=== PATIENT | male | born 1970 | race Caucasian/White ===

== ENCOUNTER → 2019-02-22 | Outpatient (CLI) | payer BC, SELFPAY ==
[2016-10-04 10:32] VITALS: BMI 29.0
--- NOTE | 2019-02-22 11:40 | RAD_ITS ---
STUDY: X-RAY - LUMBAR SPINE REASON FOR EXAM: Male, 48 years old. Right lumbar radiculopathy. History of disc surgery 1995. TECHNIQUE: 5 view(s) of the lumbar spine were obtained. COMPARISON: None FINDINGS: Normal lumbar lordosis. There is no substantial scoliosis. There is an anterolisthesis of L3 on L4 and a mild retrolisthesis of L5 on S1. There is mild multilevel endplate spondylosis of the lumbar vertebrae most prominent on the right at L4-5 and on the left at L3-4. There is degenerative disc disease with L3-4 and L5-S1 disc space narrowing. There is no demonstrated fracture. Degenerative arthroses are noted in the mid to lower lumbar facet joints, with narrowing prominent at L2-3 and L3-4 on the right as well as L3-4 and L4-5 on the left. The soft tissue structures are unremarkable. RAD/L/S Spine Min 4 Views IMPRESSION: Degenerative changes of the spine, as detailed above. Electronically Signed: Ricardo Rankin MD at 16:59 EDT , Service support ,
== END | disposition home or self-care (01) ==
LOC: MTRAD 11:38
PROVIDERS: Family Provider Family Medicine; PCP Family Medicine; Referring Provider Family Medicine; Visit Provider Family Medicine
DX: M54.16 Radiculopathy, lumbar region (principal)
CPT/HCPCS: 72110

== ENCOUNTER → 2019-03-24 | Outpatient (CLI) | payer BC, SELFPAY ==
--- NOTE | 2019-03-24 16:05 | MRI_ITS ---
STUDY: MRI LUMBAR SPINE WITH AND WITHOUT CONTRAST REASON FOR EXAM: Male, 48 years old. Low back pain, right hip and leg pain. TECHNIQUE: Standardized fat and water weighted pulse sequences were obtained in the sagittal and axial planes. IV Dotarem 20 was administered for the contrast portion of the examination. COMPARISON: None FINDINGS: T11-T12: (Sagittal only). Normal endplates. Normal disc height, hydration and morphology. Normal ventral extradural defect. Normal central canal and bilateral intervertebral neural foramina. T12-L1: (Sagittal only). Normal endplates. Normal disc height, hydration and morphology. No ventral extradural defect. Normal central canal and bilateral intervertebral neural foramina. Normal lumbar lordosis. There is no substantial scoliosis. Normal conus medullaris that terminates at the lower L1 vertebral body level. L1-2: Normal endplates. Normal disc height, hydration and morphology. Normal bilateral facet joints. Normal central canal and bilateral lateral recesses. Normal bilateral intervertebral neural foramina. L2-3: Normal endplates. Normal disc height, hydration and morphology. Normal bilateral facet joints. Normal central canal and bilateral lateral recesses. Normal bilateral intervertebral neural foramina. L3-4: Normal endplates. Mild disc space height narrowing. Mild degenerative anterolisthesis of L3 on L4. Pronounced central canal stenosis with an AP canal diameter of 5.4 mm. Moderate bilateral degenerative facet hypertrophy. Normal bilateral intervertebral neural foramina. L4-5: Normal endplates. Normal disc height. Small right ventral extradural defect is caudally directed and enhances with intravenous contrast. This is postop fibrosis. Mild central canal stenosis with an AP canal diameter of 9.5 mm. Right L4 hemilaminotomy defect. Normal facet joints. Normal bilateral intervertebral neural foramina. L5-S1: Mild Modic type II degenerative vertebral marrow fatty changes underneath the vertebral endplates. Mild degenerative retrolisthesis of L5 on S1. Moderate disc space height narrowing. Normal central canal and bilateral lateral recesses. Postsurgical absence of the lamina and a portion of the L5 spinous process. Normal bilateral intervertebral neural foramina. Normal visualized sacral ala. Normal visualized paraspinous soft tissue structures. No abnormal enhancing lesions intradurally and extradurally. MRI/Spine Lumbar W/WO Contrast IMPRESSION: 1. Small enhancing right ventral extradural defect at L4-L5 disc level is postop fibrosis and mild central canal stenosis. The AP canal diameter is 9.5 mm. 2. Mild degenerative retrolisthesis of L5 on S1 and moderate disc space height narrowing. 3. Pronounced central canal stenosis at L3-L4 disc space level with an AP canal diameter of 5.4 mm, mild degenerative anterolisthesis of L3 on L4 and moderate bilateral degenerative facet hypertrophy. 4. No MRI evidence of lumbar extruded disc fragment. Electronically Signed: Trey Santana MD at 16:00 EDT , Service support ,
== END | disposition home or self-care (01) ==
LOC: MRI 15:56
PROVIDERS: Family Provider Family Medicine; PCP Family Medicine; Referring Provider Family Medicine; Visit Provider Family Medicine
DX: M54.16 Radiculopathy, lumbar region (principal)
CPT/HCPCS: 72158; A9575

== ENCOUNTER → 2019-07-13 09:49 | Outpatient (CLI) | payer BC, SELFPAY ==
[2019-07-13 13:04] LABS: PSA,Total - Annual Screen 2.31 ng/mL (0.00-4.00)
== END ==
PROVIDERS: Family Provider Family Medicine; PCP Family Medicine; Visit Provider Family Medicine
DX: R39.11 Hesitancy of micturition (principal)
CPT/HCPCS: 36415; 84153; G0103

== ENCOUNTER → 2020-08-11 09:34 | Outpatient (CLI) | payer BC, SELFPAY ==
[2016-10-04 10:32] VITALS: BMI 29.0
[2020-08-11 12:14] LABS: Absolute Lymphocyte Count 1.44 X10^3/uL (0.83-4.51); Absolute Neutrophil Count 3.9 X10^3/uL (2.0-7.7); Basophil# 0.02 X10^3/uL; Basophil% 0.3 % (0-1); Eosinophil# 0.08 X10^3/uL; Eosinophils% 1.3 % (0-5); Hematocrit 44.2 % (40-54); Hemoglobin 14.7 g/dL (13.0-16.5); Lymphocyte # 1.44 X10^3/ul (4.0); Lymphocyte % 24.3 % (19-41); Mean Corp Hgb Conc 33.3 g/dL (32-36); Mean Corpuscular Hgb 28.3 pg (27.0-32.0); Mean Corpuscular Volume 85.2 fL (80-94); Mean Platelet Vol. 11.5 fl (6.2-12.0); Monocyte% 8.4 % (0-10); NRBC Flagged by Analyzer 0 % (0-5); Neutrophil # 3.88 X10^3/uL (2.7-7.7); Neutrophil % 65.5 % (47-70); Platelet Count 222 K/mm3 (150-450); RBC Distribution Width CV 13.2 % (11.6-14.6); RBC Distribution Width SD 41.2 fl (35.1-43.9); Red Blood Count 5.19 M/mm3 (4.6-6.2); White Blood Count 5.9 K/mm3 (4.4-11.0)
[2020-08-11 12:32] LABS: Vitamin B12 378 pg/mL (211-911)
[2020-08-11 12:37] LABS: Hemoglobin A1c 5.5 % (3.8-5.6)
[2020-08-11 12:44] LABS: Cholesterol 210 mg/dL (200); High Density Lipoprotein 43 mg/dL; T4 Free Direct 1.02 ng/dL (0.76-1.46); Thyroid Stim Hormone (TSH) 2.45 uIU/mL (0.358-3.74); Triglycerides 152 mg/dL; Very Low Density Lipoprotein 30 mg/dL (5-40)
== END ==
PROVIDERS: PCP Family Medicine; Visit Provider Family Medicine
DX: G62.9 Polyneuropathy, unspecified (principal); R73.01 Impaired fasting glucose; K62.5 Hemorrhage of anus and rectum
CPT/HCPCS: 36415; 80061; 82607; 83036; 84439; 84443; 85025

== ENCOUNTER 2021-08-17 09:58 | Outpatient (CLI) | payer BC, SELFPAY ==
--- NOTE | 2021-08-17 10:01 | RAD_ITS ---
STUDY: X-RAY - LEFT ELBOW REASON FOR EXAM: Male, 51 years old. Pain. TECHNIQUE: 3 view(s) of the elbow. COMPARISON: None. FINDINGS: Normal visualized humerus, radius and ulna. Normal radiocapitellar and ulnotrochlear articulations. The soft tissue structures are unremarkable. RAD/Elbow min 3 Views IMPRESSION: Normal x-ray examination of the elbow. Electronically Signed: José Manuel Dhillon MD at 10:18 EST ,
== END 2021-08-17 23:59 | disposition home or self-care (01) ==
LOC: MTRAD 09:59
PROVIDERS: PCP Family Medicine; Referring Provider Family Medicine; Visit Provider Family Medicine
DX: M25.522 Pain in left elbow (principal)
CPT/HCPCS: 73080

== ENCOUNTER 2021-09-03 15:25 | Outpatient (RCR) | payer BC, SELFPAY ==
--- NOTE | 2021-09-03 17:48 | HP.PTEVAL ---
Patient's Visit Information LB MATHUR is a 51 year old M referred to Physical Therapy by Dr. Harshil Rincon DO with a diagnosis of LEFT ELBOW PAIN. Date of Evaluation: 09/03/21 Physical Therapist: Dipak Conway PT, Cert MDT, OCS - Visit Plan Frequency: 1-2x /Week Duration: 4 Weeks Plan: PT INTERVETION ECCENTRICS TO WRIST EXTENSOR/FLEXORS/SUPINATORS,US ,CP AND STRETCHING. ALSO DISCUSSED WITH PATIENT RADIAL PULSE THERAPY - Subjective This 51 y/o ,abdi presents to physical therapy with left elbow pain. Patient has had elbow pain ~ 2 years maybe working out with weights ,push-ups. Pain persisted over past 2 years with medial lateral epicondylitis, But today worse lateral elbow. Seen DR recommended PT and patient has been exercising on own. Denies paresthesia/tingling. Aggravating factors symptoms worse with working out with weights ,lifting/grasping heavy objects. Patient had x-rays -. Patient able to sleep at night but has difficulty sleeping on left. Patient has done most conservative treatment and massage. Patient condition affects ability to perform housework tasks and ADL's/job demands. Patient goal is decrease pain. SOCIAL: . 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 NEURO: denies paresthesia/tingling. PALPATION: tender lateral malleoli left elbow. AROM ELBOW: 0-140 degrees ,supination/pronation 90 degrees ,wrist extension/flexion 80 degrees. MMT: wrist extension/flexion/pronation/supination 5/5,triceps/bicep 5/5. 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 120# using dynamoter to grasp things Goal Time Frame: 4-6 Weeks Goal 3:: Patient demonstrate 75% improvement to improve function and ADL'S Goal Time Frame: 4-6 Weeks Goal 4:: Patient to improve quick dash by 5 points to improve function Goal Time Frame: 4-6 Weeks - Rehabilitation Potential Physical Therapy Diagnosis: This patient has lateral and medial epicondylitis along with Rehabilitation Potential: Good - Anticipated Interventions Patient/Client Instruction: Educate patient on: Condition For the Purpose of:: To decrease pain, To increase ROM, To improve muscle performance and motor function, To increase tolerance to activity/condition/position, To improve ability of physical actions for home/community/work/leisure, To decrease soft tissue restriction, To increase flexibility/ROM, To prevent re-injury Therapeutic Exercise to Include: Strength training, Flexibilty training, Active ROM Comment: eccentrics For the Purpose of:: To decrease pain, To increase ROM, To improve muscle performance and motor function, To improve ability to perform ADL's, To increase tolerance to activity/condition/position, To improve ability of physical actions for home/community/work/leisure, To improve health of tissue, To decrease soft tissue restriction, To increase flexibility/ROM, To improve safety, To prevent re-injury Thank you for the opportunity to evaluate your patient. For Medicare and Medicare HMO plans, please review the plan of care and approve it. It will need to be FAXED BACK to us at [phone] for Medicare purposes. For Medicare only, by signing this I certify the plan of care. Please let me know if there are questions or concerns regarding this plan of care. Physician Signature: Date:
--- NOTE | 2022-03-06 11:49 | HP.PT.NRP ---
LB MATHUR was seen in my office for initial evaluation on 09/03/21. The following Plan of Care was established for this patient: Initial Frequency: 1-2x /Week Initial Duration: 4 Weeks Patient/Client Instruction: Educate patient on: Condition For the Purpose of:: To decrease pain, To increase ROM, To improve muscle performance and motor function, To increase tolerance to activity/condition/position, To improve ability of physical actions for home/community/work/leisure, To decrease soft tissue restriction, To increase flexibility/ROM, To prevent re-injury Therapeutic Exercise to Include: Strength training, Flexibilty training, Active ROM For the Purpose of:: To decrease pain, To increase ROM, To improve muscle performance and motor function, To improve ability to perform ADL's, To increase tolerance to activity/condition/position, To improve ability of physical actions for home/community/work/leisure, To improve health of tissue, To decrease soft tissue restriction, To increase flexibility/ROM, To improve safety, To prevent re-injury This patient was last seen in our office . Pertinent comments regarding their Physical therapy will appear below: Patient seen for PT for Initial evaluation for elbow pain for HEP thus d/c At this point I will be discontinuing this patient from physical therapy. I would be happy to see this patient again in the future if found appropriate by the physician. Thank you! Dipak Conway, PT, Cert MDT, OCS Balance/Gait/Functional tests - Balance/Special Test Scores Quick DASH Score: 32.5000
== END 2021-09-03 19:00 | disposition home or self-care (01) ==
LOC: PT 15:25
PROVIDERS: PCP Family Medicine; Referring Provider Family Medicine; Visit Provider Family Medicine
DX: M77.12 Lateral epicondylitis, left elbow (principal); M77.02 Medial epicondylitis, left elbow
CPT/HCPCS: 97035; 97161

== ENCOUNTER → 2021-12-19 | Outpatient (CLI) | payer BC, SELFPAY | END | disposition home or self-care (01) | LOC: LABSPEC 15:16 | PROVIDERS: PCP Family Medicine; Visit Provider Otolaryngology Otolaryngology/Facial Plastic Surgery | DX: J02.9 Acute pharyngitis, unspecified (principal) | CPT/HCPCS: 87070 ==

== ENCOUNTER → 2022-10-31 | Outpatient (CLI) | payer BC, SELFPAY ==
[2022-10-31 16:36] LABS: Absolute Lymphocyte Count 1.62 X10^3/uL (0.83-4.51); Absolute Neutrophil Count 3.6 X10^3/uL (2.0-7.7); Basophil# 0.03 X10^3/uL; Basophil% 0.5 % (0-1); Eosinophil# 0.09 X10^3/uL; Eosinophils% 1.5 % (0-5); Hematocrit 44.8 % (40-54); Hemoglobin 14.7 g/dL (13.0-16.5); Lymphocyte # 1.62 X10^3/ul (0.83-4.51); Lymphocyte % 27.8 % (19-41); Mean Corp Hgb Conc 32.8 g/dL (32-36); Mean Corpuscular Hgb 29.1 pg (27.0-32.0); Mean Corpuscular Volume 88.5 fL (80-94); Mean Platelet Vol. 12.2 fl (6.2-12.0); Monocyte# 0.44 X10^3/uL; Monocyte% 7.6 % (0-10); NRBC Flagged by Analyzer 0 % (0-5); Neutrophil # 3.63 X10^3/uL (2.7-7.7); Neutrophil % 62.4 % (47-70); Platelet Count 190 K/mm3 (150-450); RBC Distribution Width CV 14.8 % (11.6-14.6); RBC Distribution Width SD 47.8 fl (35.1-43.9); Red Blood Count 5.06 M/mm3 (4.6-6.2); White Blood Count 5.8 K/mm3 (4.4-11.0)
[2022-10-31 16:57] LABS: Hemoglobin A1c 5.4 % (3.8-5.6)
[2022-10-31 18:21] LABS: ALB/GLOB Ratio 0.9 RATIO (0.9-2.4); AST(SGOT) 26 U/L (15-37); Alanine Aminotransfer ALT/SGPT 45 U/L (16-61); Albumin, Serum 3.7 g/dL (3.2-5.0); Alkaline Phosphatase 112 U/L (45-117); Anion Gap 9 (5-15); BUN 19 mg/dL (7-18); BUN/Creat Ratio 19.3 RATIO (10-20); Calcium,Total 9.4 mg/dL (8.5-10.1); Chloride 106 mmol/L (98-107); Cholesterol 273 mg/dL (200); Creatinine, Serum 0.98 mg/dL (0.70-1.30); EST Glomerular Filtration Rate 84 mL/min (>60); Est Glom Filt Rate - Afr Amer 102 mL/min (>60); Free T3 2.7 pg/mL (2.18-3.98); GGTP 22 U/L (15-85); Glucose 93 mg/dL (74-106); High Density Lipoprotein 69 mg/dL; Potassium 3.9 mmol/L (3.5-5.1); Protein, Total 7.7 g/dL (6.4-8.2); Sodium Level 140 mmol/L (136-145); Thyroid Stim Hormone (TSH) 2.44 uIU/mL (0.358-3.74); Triglycerides 50 mg/dL; Very Low Density Lipoprotein 10 mg/dL (5-40)
[2022-10-31 18:53] LABS: Insulin 5.2 mU/L (2.6-37.6); Vitamin B12 890 pg/mL (211-911); Vitamin D,25 Hydroxy 95.8 ng/mL
== END | disposition home or self-care (01) ==
LOC: LAB 15:26
PROVIDERS: PCP Internal Medicine; Visit Provider Internal Medicine
DX: Z00.00 Encounter for general adult medical examination without abnormal findings (principal); N52.9 Male erectile dysfunction, unspecified; G62.9 Polyneuropathy, unspecified; R73.9 Hyperglycemia, unspecified; E53.8 Deficiency of other specified B group vitamins; E55.9 Vitamin D deficiency, unspecified
CPT/HCPCS: 36415; 80053; 80061; 82306; 82607; 82977; 83036; 83525; 84439; 84443; 84481; 85025

== ENCOUNTER → 2023-06-19 | Outpatient (CLI) | payer BC, SELFPAY ==
[2023-06-19 11:56] LABS: CRP, High Sensitivity Cardiac 0.43 mg/L; PSA,Total - Annual Screen 2.96 ng/mL (0.00-4.00)
[2023-07-04 10:09] LABS: Testosterone, % Free 1.67 % (1.50-4.20); Testosterone, Free 14.13 ng/dL (5.00-21.00); Testosterone, Total 846 ng/dL (264-916)
== END | disposition home or self-care (01) ==
LOC: LAB 10:57
PROVIDERS: PCP Internal Medicine; Referring Provider Internal Medicine; Visit Provider Internal Medicine
DX: Z00.00 Encounter for general adult medical examination without abnormal findings (principal); Z12.5 Encounter for screening for malignant neoplasm of prostate; G62.9 Polyneuropathy, unspecified; N52.9 Male erectile dysfunction, unspecified
CPT/HCPCS: 36415; 84153; 84402; 84403; 86141; G0103

== ENCOUNTER → 2023-10-21 | Outpatient (CLI) | payer BC, SELFPAY ==
--- NOTE | 2023-10-21 16:24 | MRI_ITS ---
STUDY: MRI RIGHT KNEE REASON FOR EXAM: Male, 53 years old. Pain. TECHNIQUE: Standardized fat and water weighted pulse sequences were obtained in all 3 orthogonal planes. COMPARISON: None. FINDINGS: There is a medial meniscus tear of the posterior horn, series 5 images 34 through 40. Normal hyaline cartilage of the medial femorotibial compartment. There is reactive marrow edema of the medial femoral condyle. There is a partial sprain of the MCL with interstitial and periligamentous edema. Normal distal semimembranosus, gracilis and semitendinosus tendons. Normal lateral meniscus. Normal hyaline cartilage of the lateral femorotibial compartment. Normal lateral femoral condyle and tibial plateau. Normal proximal tibiofibular articulation. Normal lateral collateral (fibular) ligament. Normal popliteus tendon. Normal biceps femoris tendon. Normal anterior cruciate ligament (ACL). Normal posterior cruciate ligament (PCL). There is arthrosis of the patellofemoral articulation. There is diffuse, greater than 50% thickness articular cartilage loss of the patellofemoral compartment. There is healed fracture of the lateral patella. Normal medial and lateral patellar retinaculum. Normal quadriceps tendon. Normal patellar tendon. Normal Hoffa''s fat pad. There is a small volume joint effusion. The soft tissues are unremarkable. The otherwise visualized osseous structures are unremarkable. MRI/Lower Ext Joint Only (Routine) IMPRESSION: Medial meniscus tear. Medial collateral ligament sprain. Stress injury/fracture of the medial femoral condyle. Patellofemoral degenerative change. Joint effusion. Electronically Signed: Rafita Farnsworth MD at 18:16 EDT ,
== END | disposition home or self-care (01) ==
PROVIDERS: PCP Internal Medicine
DX: S83.241A Other tear of medial meniscus, current injury, right knee, initial encounter (principal); X58.XXXA Exposure to other specified factors, initial encounter
CPT/HCPCS: 73721

== ENCOUNTER 2023-12-12 08:29 | Day surgery (SDC) | payer BC, SELFPAY ==
[2023-12-12] VITALS (8 sets, daily range): BP systolic 92–108; BP diastolic 60–79; PULSE 59–96; RESP 16; TEMP 36.3–36.4; O2SAT 91–98; BMI 28.1
[2023-12-12] MEDS: Lactated Ringers 1,000 ML 15 ML IV (08:58)
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
--- NOTE | 2023-12-12 09:51 | OP.COLON_ITS ---
Patient Name: Devon Mcnamara Procedure Date: 12/12/2023 9:13 AM Date of : 1970 Age: 53 Procedure: Colonoscopy Indications: Rectal bleeding Providers: Myles Kahn MD Referring MD: Ifeoma Negron Medicines: Propofol per Anesthesia Patient Profile: Last Colonoscopy: several years ago. Complications: No immediate complications. Procedure: Pre-Anesthesia Assessment: - Prior to the procedure, a History and Physical was performed, and patient medications and allergies were reviewed. The patient's tolerance of previous anesthesia was also reviewed. The risks and benefits of the procedure and the sedation options and risks were discussed with the patient. All questions were answered, and informed consent was obtained. Prior Anticoagulants: The patient has taken no anticoagulant or antiplatelet agents. After reviewing the risks and benefits, the patient was deemed in satisfactory condition to undergo the procedure. After I obtained informed consent, the scope was passed under direct vision. Throughout the procedure, the patient's blood pressure, pulse, and oxygen saturations were monitored continuously. The Colonoscope was introduced through the anus and advanced to the cecum, identified by appendiceal orifice and ileocecal valve. The colonoscopy was performed without difficulty. The patient tolerated the procedure well. The quality of the bowel preparation was good. The ileocecal valve, appendiceal orifice, and rectum were photographed. Scope In: 9:36:34 AM Scope Withdrawal Time 0 hours 6 minutes 10 seconds Scope Out: 9:47:38 AM Total Procedure Duration Time 0 hours 11 minutes 4 seconds Findings: The entire examined colon appeared normal on direct and retroflexion views. Impression: - The entire examined colon is normal on direct and retroflexion views. - No specimens collected. Recommendation: - Discharge patient to home. - Resume previous diet. - Continue present medications. - Repeat colonoscopy in 10 years for screening purposes. Procedure Code(s): --- Professional --- 27091, Colonoscopy, flexible; diagnostic, including collection of specimen(s) by brushing or washing, when performed (separate procedure) Diagnosis Code(s): --- Professional --- K62.5, Hemorrhage of anus and rectum CPT copyright 2021 [employer]. All rights reserved. The codes documented in this report are preliminary and upon grinding mill operator review may be revised to meet current compliance requirements. Myles Kahn MD 12/12/2023 9:50:27 AM This report has been signed electronically. Number of Addenda: 0 Note Initiated On: 12/12/2023 9:13 AM
--- NOTE | 2023-12-12 09:51 | OP.CCLET_ITS ---
12/12/2023 Ifeoma Negron [facility] [address] [place] [address] Re : Colonoscopy procedure for Devon Mcnamara Dear Dr. Negron This procedure was performed on Tuesday, December 12, 2023. My impressions and recommendations are as follows: Impressions : - The entire examined colon is normal on direct and retroflexion views. - No specimens collected. Recommendations : - Discharge patient to home. - Resume previous diet. - Continue present medications. - Repeat colonoscopy in 10 years for screening purposes. My findings are described in the full procedure note, which is enclosed. If I can be of further assistance, please feel free to contact me at Doctor phone number(s): , Work: . Sincerely, Myles Kahn MD 12/12/2023 9:50:27 AM This report has been signed electronically.
--- NOTE | 2023-12-12 09:52 | PCM.POST.ANE ---
Anesthesia: Postop Eval I Current Vital Signs Temperature: 97.4 F Pulse Rate: 78 Blood Pressure: 92/60 Respiratory Rate: 16 Pulse Ox: 91 Oxygen Delivery Method: Room Air Assessment Airway patent: Yes Spontaneous unlabored respirations: Yes Mental status: Asleep nausea: No Vomiting: No Anesthesia Complication: No Fluid Hydration Crystalloid volume administer (ml): 500 Total IV fluid infused: 500 Progress Note Anesthesia document: Postop Eval 1 completed: Yes
--- NOTE | 2023-12-12 10:28 | PCM.POSTANE2 ---
Anesthesia Postop Eval I Sum Postop Eval Completion status Anesthesia document: Postop Eval 1 completed: Yes Anesthesia Postop Eval I Summary Anesthesia Postop Eval I Summary: Anesthesia Postop Eval I: Assessment Summary Airway patent Yes 12/12/23 09:58 [email or web address] Spontaneous unlabored Yes 12/12/23 09:58 [email or web address] respirations Mental status Asleep 12/12/23 09:58 [email or web address] nausea No 12/12/23 09:58 [email or web address] Vomiting No 12/12/23 09:58 [email or web address] Anesthesia Postop Eval I: Fluid Summary Crystalloid volume administer 500 12/12/23 09:58 [email or web address] (ml) Colloids volume administered ( ml) Blood Product volume administered (ml) Total IV fluid infused 500 12/12/23 09:58 [email or web address] Anesthesia Postop Eval I: Summary Notes Anesthesia Complication No 12/12/23 09:58 [email or web address] Anesthesia Complication Comment: Post-operative progress note Anesthesia: Postop Eval II Evaluation Mental status: Awake Pain Level: 1 nausea: No Vomiting: No Complications Anesthesia Complication: No
== END 2023-12-12 10:56 | disposition home or self-care (01) ==
LOC: EN 08:30 → AC 08:32
PROVIDERS: PCP Internal Medicine; Referring Provider Internal Medicine; Visit Provider Surgery
PROC: 0DJD8ZZ Inspection of Lower Intestinal Tract, Via Natural or Artificial Opening Endoscopic (ICD-10-PCS; CPT 45378; principal; 2023-12-12 09:25)
DX: K62.5 Hemorrhage of anus and rectum (principal); Z79.899 Other long term (current) drug therapy
CPT/HCPCS: 45378; J2405

== ENCOUNTER → 2024-04-08 | Outpatient (CLI) | payer BC, SELFPAY ==
[2024-04-08 12:24] LABS: Absolute Lymphocyte Count 1.64 X10^3/uL (0.83-4.51); Absolute Neutrophil Count 3.6 X10^3/uL (2.0-7.7); Basophil# 0.03 X10^3/uL; Basophil% 0.5 % (0-1); Eosinophil# 0.07 X10^3/uL; Eosinophils% 1.2 % (0-5); Hematocrit 45.1 % (40-54); Hemoglobin 14.7 g/dL (13.0-16.5); Lymphocyte # 1.64 X10^3/ul (0.83-4.51); Lymphocyte % 28.2 % (19-41); Mean Corp Hgb Conc 32.6 g/dL (32-36); Mean Corpuscular Hgb 28.5 pg (27.0-32.0); Mean Corpuscular Volume 87.4 fL (80-94); Monocyte# 0.49 X10^3/uL; Monocyte% 8.4 % (0-10); NRBC Flagged by Analyzer 0 % (0-5); Neutrophil # 3.58 X10^3/uL (2.7-7.7); Neutrophil % 61.5 % (47-70); Platelet Count 201 K/mm3 (150-450); RBC Distribution Width CV 14.2 % (11.6-14.6); RBC Distribution Width SD 45.6 fl (35.1-43.9); Red Blood Count 5.16 M/mm3 (4.6-6.2); White Blood Count 5.8 K/mm3 (4.4-11.0)
[2024-04-08 12:52] LABS: Vitamin D,25 Hydroxy 91.4 ng/mL
[2024-04-08 13:08] LABS: ALB/GLOB Ratio 1.1 RATIO (0.9-2.4); AST(SGOT) 24 U/L (15-37); Alanine Aminotransfer ALT/SGPT 31 U/L (16-61); Albumin, Serum 4.1 g/dL (3.2-5.0); Alkaline Phosphatase 100 U/L (45-117); Anion Gap 3 (5-15); BUN 22 mg/dL (7-18); Calcium,Total 9.3 mg/dL (8.5-10.1); Chloride 109 mmol/L (98-107); Cholesterol 259 mg/dL (200); Creatinine, Serum 1.16 mg/dL (0.70-1.30); EST Glomerular Filtration Rate 69 mL/min (>60); Est Glom Filt Rate - Afr Amer 84 mL/min (>60); Globulin 3.6 g/dL (2.2-4.2); Glucose 92 mg/dL (74-106); High Density Lipoprotein 67 mg/dL; Potassium 3.9 mmol/L (3.5-5.1); Protein, Total 7.7 g/dL (6.4-8.2); Sodium Level 140 mmol/L (136-145); Triglycerides 59 mg/dL; Very Low Density Lipoprotein 12 mg/dL (5-40)
[2024-04-14 14:48] LABS: Arsenic 7245 5 ug/L (0-9); Lead, Blood < 1.0 ug/dL (0.0-3.4); Mercury, Blood 85324 1.2 ug/L (0.0-14.9)
== END | disposition home or self-care (01) ==
LOC: LAB 11:48
PROVIDERS: PCP Internal Medicine; Referring Provider Internal Medicine; Visit Provider Internal Medicine
DX: Z00.00 Encounter for general adult medical examination without abnormal findings (principal); M25.561 Pain in right knee; N52.9 Male erectile dysfunction, unspecified; K62.5 Hemorrhage of anus and rectum; E55.9 Vitamin D deficiency, unspecified; Z13.220 Encounter for screening for lipoid disorders; G62.9 Polyneuropathy, unspecified
CPT/HCPCS: 36415; 80053; 80061; 82175; 82306; 83655; 83825; 84443; 85025

== ENCOUNTER → 2025-02-09 | Outpatient (CLI) | payer BC, SELFPAY ==
[2025-02-09 12:17] LABS: Hematocrit 40.3 % (40-54); Hemoglobin 13.4 g/dL (13.0-16.5); Immature Granulocytes Count 0.010 X10^3/uL (0.0-0.0); Mean Corp Hgb Conc 33.3 g/dL (32-36); Mean Corpuscular Volume 87.8 fL (80-94); Mean Platelet Vol. 10.7 fl (6.2-12.0); NRBC Flagged by Analyzer 0 % (0-5); Platelet Count 185 K/mm3 (150-450); RBC Distribution Width CV 14.2 % (11.6-14.6); RBC Distribution Width SD 46.0 fl (35.1-43.9); Red Blood Count 4.59 M/mm3 (4.6-6.2); White Blood Count 5.1 K/mm3 (4.4-11.0)
[2025-02-09 13:12] LABS: AST(SGOT) 38 U/L (<=37); Alanine Aminotransfer ALT/SGPT 32 U/L (<=46); Albumin, Serum 4.3 g/dL (3.5-5.0); Alkaline Phosphatase 107 U/L (40-129); Anion Gap 11 (5-15); BUN 21 mg/dL (4-19); BUN/Creat Ratio 16.2 RATIO (10-20); Calcium,Total 9.3 mg/dL (7.6-11.0); Carbon Dioxide 23.8 mmol/L (21.0-32.0); Chloride 103 mmol/L (98-108); Globulin 2.4 g/dL (2.2-4.2); Glucose 95 mg/dL (70-99); Potassium 4.2 mmol/L (3.3-5.1)
[2025-02-09 13:48] LABS: Cholesterol 217 mg/dL (<=200); Low Density Lipoprotein Calc. 146 mg/dL; PSA,Total - Annual Screen 2.25 ng/mL (0.02-4.00); Triglycerides 44 mg/dL; Very Low Density Lipoprotein 9 mg/dL (5-40); Vitamin B12 2614 pg/mL (180-914); Vitamin D,25 Hydroxy > 240.0 ng/mL (30-100); cholesterol:hdl ratio screen 3.51
[2025-02-10 05:07] LABS: CRP, High Sensitivity 0.42 mg/L (0.00-3.00)
== END | disposition home or self-care (01) ==
LOC: LAB 11:55
PROVIDERS: PCP Internal Medicine; Referring Provider Internal Medicine; Visit Provider Internal Medicine
DX: Z00.00 Encounter for general adult medical examination without abnormal findings (principal); Z12.5 Encounter for screening for malignant neoplasm of prostate; R73.9 Hyperglycemia, unspecified; G62.9 Polyneuropathy, unspecified; E55.9 Vitamin D deficiency, unspecified; E53.8 Deficiency of other specified B group vitamins
CPT/HCPCS: 36415; 80053; 80061; 82306; 82607; 83036; 83525; 84153; 84443; 85025; 86141; G0103

== ENCOUNTER → 2025-03-01 | Outpatient (CLI) | payer BC, SELFPAY ==
[2025-03-01 12:07] LABS: Anion Gap 8 (5-15); BUN 23 mg/dL (4-19); BUN/Creat Ratio 20.3 RATIO (10-20); Calcium,Total 9.1 mg/dL (7.6-11.0); Carbon Dioxide 24.8 mmol/L (21.0-32.0); Chloride 105 mmol/L (98-108); Glucose 96 mg/dL (70-99); Potassium 4.2 mmol/L (3.3-5.1)
== END | disposition home or self-care (01) ==
LOC: LAB 10:34
PROVIDERS: PCP Internal Medicine; Referring Provider Internal Medicine; Visit Provider Internal Medicine
DX: R79.89 Other specified abnormal findings of blood chemistry (principal)
CPT/HCPCS: 36415; 80048

== ENCOUNTER → 2025-04-22 | Outpatient (CLI) | payer BC, SELFPAY ==
--- NOTE | 2025-04-22 15:08 | VDLE_ITS ---
Reason For Study Reason For Study: LLE PAin RIGHT LEFT CFV is compressible, spontaneous, phasic, competent GSV is normal. and demonstrates normal augmentation. CFV is compressible, spontaneous, phasic, competent Procedure and demonstrates normal augmentation. This is a venous duplex using B-mode, color flow and FV is compressible, spontaneous, phasic, competent and spectral Doppler. demonstrates normal augmentation. Exam performed in department. POP V is compressible, spontaneous, and phasic. The exam was diagnostic. Acute deep vein thrombosis is noted in the T/P Trunk. A preliminary report was called and/or faxed to RN @ It is dilated and NONCOMPRESSIBLE. Dr Lee office. Acute deep vein thrombosis is noted in the PTV. It is dilated and NONCOMPRESSIBLE. Acute deep vein thrombosis is noted in the Soleus Vein. It is dilated and NONCOMPRESSIBLE. Peroneal Vein is compressible. VL/Venous Duplex US, Unilateral Interpretation Summary Acute deep vein thrombosis is noted in the left tibio-peroneal trunk. Acute jonny p vein thrombosis is noted in the left posterior tibial vein. Acute deep vein thrombosis is noted in the left soleus v ein. The remainder of the left lower extremity deep venous system is patent and compressible. The left common femora l vein and femoral vein are competent. The left great saphenous vein appears patent and compressible segmentally. The right common femoral vein is patent and compressible . Ordering Physician: Ifeoma Negron Referring Physician: Ifeoma Negron Performed By: Wilman Patricio, RVMahamed
== END | disposition home or self-care (01) ==
LOC: CVS 15:06
PROVIDERS: PCP Internal Medicine; Referring Provider Internal Medicine; Visit Provider Internal Medicine
DX: I82.409 Acute embolism and thrombosis of unspecified deep veins of unspecified lower extremity (principal); I70.92 Chronic total occlusion of artery of the extremities; M79.605 Pain in left leg
CPT/HCPCS: 93971

== ENCOUNTER → 2025-04-27 | Outpatient (CLI) | payer BC, SELFPAY ==
[2025-04-27 13:24] LABS: Vitamin D,25 Hydroxy 130.0 ng/mL (30-100)
[2025-05-03 09:08] LABS: Anti-Cardiolipin Ab, IgA, Qn < 9 APL U/mL (0-11); Anti-Cardiolipin Ab, IgG, Qn < 9 GPL U/mL (0-14); Anti-Cardiolipin Ab, IgM, Qn 17 MPL U/mL (0-12); Antithrombin 3 Function 121 % (75-135); Dilute Russell Viper Venom 56.2 sec (0.0-47.0); Dilute Russell Viper Venom Mix 49.7 sec (0.0-40.4); Hexagonal Phase Phospholipid 2 2 sec (0-11); Interpretation Comment: (.); PTT-LA 45.7 sec (0.0-43.5); Protein C, Functional 94 % (73-180); Protein S, Funtional 90 % (63-140)
== END | disposition home or self-care (01) ==
PROVIDERS: PCP Internal Medicine; Visit Provider Internal Medicine
DX: I82.409 Acute embolism and thrombosis of unspecified deep veins of unspecified lower extremity (principal); E55.9 Vitamin D deficiency, unspecified
CPT/HCPCS: 36415; 81240; 81241; 82306; 85300; 85303; 85305; 85306; 86147